=== PATIENT | male | born 1980 | race Caucasian/White ===

== ENCOUNTER 2017-07-21 22:35 | Emergency (ER) | payer MEDICAID ==
[~2017-07-21] VITALS: Ht 180.3 cm; Wt 60.8 kg
[2017-07-21 22:37] VITALS: BP 129/86
[2017-07-21 23:21] LABS: RAPID INFLUENZA A Negative (Negative); RAPID INFLUENZA B Negative (Negative)
== END 2017-07-21 23:42 | disposition home or self-care (01) ==
LOC: ED 23:15
DX: J20.9 Acute bronchitis, unspecified (principal); B96.89 Other specified bacterial agents as the cause of diseases classified elsewhere
CPT/HCPCS: 71020; 87400; 99285

== ENCOUNTER 2017-10-30 15:36 | Emergency (ER) | payer MEDICAID ==
[~2017-10-30] VITALS: Ht 177.8 cm; Wt 57.3 kg
[2017-10-30] MEDS ORDERED: MIDAZOLAM 1 MG/ML, 2ML ONE ×2 (15:42)
[2017-10-30] MEDS ORDERED: MIDAZOLAM 1 MG/ML, 2ML IVPush ONE (16:00)
[2017-10-30] MEDS ORDERED: PLEASE ENTER HEIGHT AND WEIGHT MC SCH (16:00)
[2017-10-30 16:01] LABS: ALBUMIN 4.1 g/dL (3.4-5.0); ANION GAP 5 mmol/L (5-15); CHLORIDE 112 mmol/L (98-107); SALICYLATE LEVEL 2.7 mg/dL (2.8-20.0)
[2017-10-30 16:04] LABS: ACETAMINOPHEN < 2 mcg/mL (10-30); ALANINE AMINOTRANSFERASE 24 U/L (12-78); ALKALINE PHOSPHATASE 59 U/L (45-117); BILIRUBIN,TOTAL 0.4 mg/dL (0.2-1.0); CREATININE 1.12 mg/dL (0.7-1.3); TOTAL PROTEIN 7.5 g/dL (6.4-8.2)
[2017-10-30 16:10] LABS: BASOPHILS # (AUTO) 0.04 x10^3/uL (0-0.1); BASOPHILS % (AUTO) 0 % (0-1); EOSINOPHILS # (AUTO) 0.14 x10^3/uL (0-0.4); EOSINOPHILS % (AUTO) 1 % (1-7); LYMPHOCYTES # (AUTO) 2.21 x10^3/uL (1-3.4); LYMPHOCYTES % (AUTO) 18 % (22-44); MD NO; MEAN CORPUSCULAR HEMOGLOBIN 32.7 pg (27.5-34.5); MEAN PLATELET VOLUME 8.1 fL (7.4-10.4); MONOCYTES % (AUTO) 4 % (2-9); NEUTROPHILS # (AUTO) 9.41 x10^3/uL (1.8-6.8); NEUTROPHILS % (AUTO) 77 % (42-75); PLATELET COUNT 258 x10^3/uL (130-400); RED BLOOD COUNT 4.51 x10^6/uL (4.38-5.82); RED CELL DISTRIBUTION WIDTH 12.1 % (9.4-14.8)
[2017-10-30] MEDS ORDERED: KETOROLAC 30 MG/1 ML ONE (20:08)
[2017-10-30 21:28] VITALS: BP 113/75
== END 2017-10-30 21:31 | disposition home or self-care (01) ==
LOC: ED 17:14
DX: F10.120 Alcohol abuse with intoxication, uncomplicated (principal)
CPT/HCPCS: 36415; 70450; 80053; 80307; 80329; 85025; 93005; 96374; 99285; J2250; G0480

== ENCOUNTER 2018-10-21 21:55 | Emergency (ER) | payer MEDICAID, OTHER ==
[~2018-10-21] VITALS: Ht 180.3 cm; Wt 60.8 kg
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
--- NOTE | 2018-10-21 22:41 | NUR ---
PT IN XRAY NOW.
--- NOTE | 2018-10-21 22:57 | NUR ---
EDMD AT BEDSIDE TO ASSESS AT THIS TIME.
[2018-10-21 23:02] LABS: BASOPHILS # (AUTO) 0.03 x10^3/uL (0-0.1); BASOPHILS % (AUTO) 0 % (0-1); EOSINOPHILS # (AUTO) 0.07 x10^3/uL (0-0.4); EOSINOPHILS % (AUTO) 1 % (1-7); LYMPHOCYTES # (AUTO) 1.87 x10^3/uL (1-3.4); LYMPHOCYTES % (AUTO) 26 % (22-44); MD NO; MEAN CORPUSCULAR HEMOGLOBIN 32.7 pg (27.5-34.5); MEAN CORPUSCULAR HGB CONC 33.9 g/dL (33.2-36.2); MEAN CORPUSCULAR VOLUME 96.3 fL (81-97); MEAN PLATELET VOLUME 7.7 fL (7.4-10.4); MONOCYTES # (AUTO) 0.51 x10^3/uL (0.2-0.8); MONOCYTES % (AUTO) 7 % (2-9); NEUTROPHILS # (AUTO) 4.63 x10^3/uL (1.8-6.8); NEUTROPHILS % (AUTO) 65 % (42-75); PLATELET COUNT 221 x10^3/uL (130-400); RED BLOOD COUNT 4.42 x10^6/uL (4.38-5.82); RED CELL DISTRIBUTION WIDTH 12.3 % (9.4-14.8)
--- NOTE | 2018-10-21 23:02 | NUR ---
PT AMB TO BR AND BACK TO ROOM WITH STEADY GAIT.
[2018-10-21 23:14] LABS: ALANINE AMINOTRANSFERASE 21 U/L (12-78); ALBUMIN 4.2 g/dL (3.4-5.0); ANION GAP 2 mmol/L (5-15); CALCIUM 8.4 mg/dL (8.5-10.1); CHLORIDE 113 mmol/L (98-107); CREATININE 0.89 mg/dL (0.7-1.3)
[2018-10-21 23:18] LABS: ALKALINE PHOSPHATASE 56 U/L (45-117); BILIRUBIN,TOTAL 0.7 mg/dL (0.2-1.0); TOTAL PROTEIN 7.1 g/dL (6.4-8.2); TROPONIN I < 0.015 ng/mL (0.000-0.045)
--- NOTE | 2018-10-21 23:30 | NUR ---
PT UNABLE TO PROVIDE URINE SAMPLE AT THIS TIME. PROVIDED SOME WATER.
[2018-10-21 23:48] VITALS: BP 112/68
--- NOTE | 2018-10-21 23:48 | NUR ---
PT GIVEN DC INSTRUCTIONS. PT AMB TO DC WITH STEADY GAIT. PT'S AOX4. RESPS EVEN AND UNLABORED. NO ACUTE DISTRESS AT DC.
== END 2018-10-21 23:49 | disposition home or self-care (01) ==
LOC: ED 23:42
DX: R07.9 Chest pain, unspecified (principal); F17.200 Nicotine dependence, unspecified, uncomplicated
CPT/HCPCS: 36415; 71046; 80053; 83880; 84484; 85025; 93005; 99284

== ENCOUNTER 2018-11-11 23:17 | Emergency (ER) | payer OTHER ==
[~2018-11-11] VITALS: Ht 177.8 cm; Wt 60.0 kg
--- NOTE | 2018-11-11 23:45 | NUR ---
LATE ENTRY FOR 23:45. FIRST CONTACT WITH PT. PT C/O CENTER PAIN CHEST 04/03 PT REPORTS HE HAS HAD CHEST PAIN X1 MONTH. PT'S AOX4. RESPS EVEN AND UNLABORED. PT DENIES ANY OTHER S/S AT THIS TIME. ALL MONITORS IN PLACE. CALL LIGHT WITHIN REACH.
[2018-11-12] MEDS ORDERED: IBUPROFEN 800 MG TABLET PO ONE
[2018-11-12] MEDS ORDERED: IBUPROFEN 800 MG TABLET ONE (00:05)
--- NOTE | 2018-11-12 00:24 | NUR ---
PT MEDICATED PER EMAR. PT TOLERATED WELL.
[2018-11-12 00:32] VITALS: BP 109/67
--- NOTE | 2018-11-12 00:33 | NUR ---
PT GIVEN DC INSTRUCTIONS AND SCRIPT. PT EDUCATED REGARDING DC MEDICATION. PT AMB TO DC IWTH STEADY GAIT. PT'S AOX4. RESPS EVEN AND UNLABORED. NO ACUTE DISTRESS AT DC.
== END 2018-11-12 00:34 | disposition home or self-care (01) ==
LOC: ED 11-12 00:25
DX: G89.29 Other chronic pain (principal); R07.9 Chest pain, unspecified; G43.909 Migraine, unspecified, not intractable, without status migrainosus
CPT/HCPCS: 93005; 99283

== ENCOUNTER 2018-12-01 11:23 | Emergency (ER) | payer OTHER ==
[~2018-12-01] VITALS: Ht 180.3 cm; Wt 58.0 kg
[2018-12-01 11:34] VITALS: BP 117/72
[2018-12-01] MEDS ORDERED: ACETAMINOPHEN 325 MG TABLET PO ONE (12:00)
[2018-12-01] MEDS ORDERED: DEXAMETHASONE 4 MG TABLET PO ONE (12:00)
[2018-12-01] MEDS ORDERED: ACETAMINOPHEN 325 MG TABLET ONE (12:13)
[2018-12-01] MEDS ORDERED: DEXAMETHASONE 4 MG TABLET ONE (12:14)
== END 2018-12-01 12:42 | disposition home or self-care (01) ==
LOC: ED 12:16
DX: J02.0 Streptococcal pharyngitis (principal); F17.200 Nicotine dependence, unspecified, uncomplicated; G43.909 Migraine, unspecified, not intractable, without status migrainosus
CPT/HCPCS: 71046; 87880; 99284

== ENCOUNTER 2019-01-23 18:58 | Emergency (ER) | payer OTHER ==
[~2019-01-23] VITALS: Ht 180.3 cm; Wt 57.1 kg
[2019-01-23] MEDS ORDERED: ONDANSETRON ODT 8 MG PO STA (19:15)
--- NOTE | 2019-01-23 19:16 | NUR ---
PT STATES "MY WHOLE BODY HURTS. I HAVE A HEADACHE, SORE NECK, SORE JOINTS. I THINK I'M REALLY SICK". monitors applied, siderails up x2, call light within reach
[2019-01-23 19:19] VITALS: BP 112/71
[2019-01-23] MEDS ORDERED: ACETAMINOPHEN 325 MG TABLET ONE (19:20)
[2019-01-23] MEDS ORDERED: ONDANSETRON ODT 4 MG ONE (19:21)
--- NOTE | 2019-01-23 19:24 | NUR ---
pt medicated per mar
[2019-01-23 19:30] LABS: MEAN CORPUSCULAR HEMOGLOBIN 33.7 pg (27.5-34.5); MEAN CORPUSCULAR HGB CONC 33.6 g/dL (33.2-36.2); MEAN CORPUSCULAR VOLUME 100.3 fL (81-97); MEAN PLATELET VOLUME 7.9 fL (7.4-10.4); PLATELET COUNT 231 x10^3/uL (130-400); RED BLOOD COUNT 5.64 x10^6/uL (4.38-5.82); RED CELL DISTRIBUTION WIDTH 12.5 % (9.4-14.8)
[2019-01-23] MEDS ORDERED: ACETAMINOPHEN 500 MG TABLET PO ONE (19:30)
[2019-01-23 19:35] LABS: MD YES
[2019-01-23 19:42] LABS: ALANINE AMINOTRANSFERASE 25 U/L (12-78); ALBUMIN 5.3 g/dL (3.4-5.0); ANION GAP 16 mmol/L (5-15); CALCIUM 10.9 mg/dL (8.5-10.1); CHLORIDE 99 mmol/L (98-107); CREATININE 2.25 mg/dL (0.7-1.3)
[2019-01-23 19:44] LABS: ALKALINE PHOSPHATASE 89 U/L (45-117); BILIRUBIN,TOTAL 1.4 mg/dL (0.2-1.0); TOTAL PROTEIN 9.8 g/dL (6.4-8.2)
--- NOTE | 2019-01-23 19:50 | NUR ---
PROVIDED PT WITH URINE CUP FOR SAMPLE.
--- NOTE | 2019-01-23 19:54 | NUR ---
PT DRESSED AND WALKING OUT OF HOSPITAL, PA NOTIFIED AND DISCUSSED WITH PT POC AND NEED FOR ABX, PT STATED " I DON'T CARE AND WALKED OUT OF HOSPITAL."
[2019-01-23 20:13] LABS: BAND#(MANUAL) 0.47 x10^3/uL; BANDS%(MANUAL) 2 % (0-7); LYMPH#(MANUAL) 0.94 x10^3/uL (1-3.4); LYMPHS% (MANUAL) 4 % (22-44); MONOS#(MANUAL) 2.12 x10^3/uL (0.3-2.7); MONOS% (MANUAL) 9 % (2-9); SEG#(MANUAL) 20.06 x10^3/uL (1.8-6.8); SEGS% (MANUAL) 85 % (42-75)
[2019-01-23 20:15] LABS: <PLATELET ESTIMATE> ADEQUATE; <PLT MORPHOLOGY> NORMAL PLT MORPH
== END 2019-01-23 19:57 | disposition left against medical advice (07) ==
LOC: ED 19:51
DX: J02.0 Streptococcal pharyngitis (principal); N17.9 Acute kidney failure, unspecified; D72.829 Elevated white blood cell count, unspecified; I10 Essential (primary) hypertension; F17.210 Nicotine dependence, cigarettes, uncomplicated; Z90.49 Acquired absence of other specified parts of digestive tract
CPT/HCPCS: 36415; 80053; 83690; 85025; 86308; 87880; 99283; Q0162

== ENCOUNTER 2019-01-23 21:32 | Inpatient (IN) | payer OTHER ==
[~2019-01-23] VITALS: Ht 180.3 cm; Wt 56.3 kg
[2019-01-23] MEDS ORDERED: SODIUM CHLORIDE FLUSH 10ML SYR IVF ONE (22:30)
[2019-01-23] MEDS ORDERED: SODIUM CHLORIDE 0.9% 1,000ML IVBOLUS ONE ×2 (22:30→23:00)
--- NOTE | 2019-01-23 22:52 | NUR ---
IV STARTED, LABS DRAWN AND PT PLACED ON BP AND SPO2 MONITORS.
[2019-01-23] MEDS ORDERED: MORPHINE SULFATE 4 MG/ML, 1ML IVPush PRN (23:00)
[2019-01-23] MEDS ORDERED: AMPICILLIN/SULBACTAM 3 GM in SODIUM CHLORIDE 0.9% 100 ML IV ONE (23:00)
[2019-01-23] MEDS ORDERED: ONDANSETRON 2MG/ML, 2ML IVPush ONE (23:00)
[2019-01-23] MEDS ORDERED: ONDANSETRON 2MG/ML, 2ML ONE (23:25)
[2019-01-23] MEDS ORDERED: MORPHINE SULFATE 4 MG/ML, 1ML ONE (23:25)
--- NOTE | 2019-01-23 23:40 | NUR ---
LAB AT BEDSIDE FOR BLOOD CULTURE X 2 DRAW. PT AWARE OF IMPORTANCE OF BLOOD CULTURES.
[2019-01-24] MEDS ORDERED: hydrALAzine 20 MG/ML, 1ML IVPush PRN
[2019-01-24] MEDS: NICOTINE 14MG/24 HR PATCH.TD24 TD SCH
[2019-01-24] MEDS ORDERED: ONDANSETRON 2MG/ML, 2ML IVPush PRN
[2019-01-24] MEDS ORDERED: ACETAMINOPHEN 325 MG TABLET PO PRN
[2019-01-24 01:00] VITALS: BP 116/79
[2019-01-24 01:11] VITALS: BP 164/79
[2019-01-24] MEDS: SODIUM CHLORIDE 0.9% 1,000 ML IV SCH ×3 (02:41→19:32)
[2019-01-24] MEDS: HYDROcodone/APAP 5/325 TABLET PO PRN ×2 (04:28→12:05)
[2019-01-24 04:47] LABS: MEAN CORPUSCULAR HEMOGLOBIN 33.9 pg (27.5-34.5); MEAN CORPUSCULAR HGB CONC 33.7 g/dL (33.2-36.2); MEAN CORPUSCULAR VOLUME 100.4 fL (81-97); MEAN PLATELET VOLUME 8.4 fL (7.4-10.4); PLATELET COUNT 231 x10^3/uL (130-400); RED CELL DISTRIBUTION WIDTH 12.4 % (9.4-14.8)
[2019-01-24 04:50] LABS: ANION GAP 11 mmol/L (5-15); CALCIUM 9.4 mg/dL (8.5-10.1); CHLORIDE 103 mmol/L (98-107); CREATININE 1.99 mg/dL (0.7-1.3)
[2019-01-24 05:04] LABS: MICROSCOPIC INDICATED
[2019-01-24 05:09] LABS: AMPHETAMINE SCREEN, URINE Negative (Negative); BARBITURATE SCREEN, URINE Negative (Negative); BENZODIAZEPINE SCREEN, URINE Negative (Negative); CANNABINOID SCREEN, URINE Positive (Negative); COCAINE SCREEN, URINE Negative (Negative); METHADONE SCREEN, URINE Negative (Negative); OPIATE SCREEN, URINE Positive (Negative)
[2019-01-24 05:26] LABS: CULTURE INDICATED? YES
[2019-01-24 05:55] LABS: BASOPHILS # (AUTO) 0.01 x10^3/uL (0-0.1); BASOPHILS % (AUTO) 0 % (0-1); EOSINOPHILS # (AUTO) 0.02 x10^3/uL (0-0.4); EOSINOPHILS % (AUTO) 0 % (1-7); LYMPHOCYTES # (AUTO) 1.34 x10^3/uL (1-3.4); LYMPHOCYTES % (AUTO) 6 % (22-44); MD SCAN; MONOCYTES # (AUTO) 1.55 x10^3/uL (0.2-0.8); MONOCYTES % (AUTO) 7 % (2-9); NEUTROPHILS # (AUTO) 18.63 x10^3/uL (1.8-6.8); NEUTROPHILS % (AUTO) 87 % (42-75)
[2019-01-24 07:05] VITALS: BP 100/65
[2019-01-24] MEDS: AMPICILLIN/SULBACTAM 1,500 MG in SODIUM CHLORIDE 0.9% 50 ML IV SCH ×2 (07:44→15:50)
[2019-01-24 11:56] LABS: MEAN CORPUSCULAR HEMOGLOBIN 34.2 pg (27.5-34.5); MEAN CORPUSCULAR VOLUME 100.6 fL (81-97); PLATELET COUNT 213 x10^3/uL (130-400); RED BLOOD COUNT 4.52 x10^6/uL (4.38-5.82); RED CELL DISTRIBUTION WIDTH 12.9 % (9.4-14.8)
[2019-01-24 12:09] LABS: ALANINE AMINOTRANSFERASE 19 U/L (12-78); ALBUMIN 3.6 g/dL (3.4-5.0); ANION GAP 5 mmol/L (5-15); CALCIUM 8.9 mg/dL (8.5-10.1); CHLORIDE 105 mmol/L (98-107); CREATININE 1.47 mg/dL (0.7-1.3)
[2019-01-24 12:12] LABS: ALKALINE PHOSPHATASE 63 U/L (45-117); BILIRUBIN,TOTAL 0.8 mg/dL (0.2-1.0); TOTAL PROTEIN 7.1 g/dL (6.4-8.2)
[2019-01-24 12:29] LABS: BASOPHILS # (AUTO) 0.02 x10^3/uL (0-0.1); BASOPHILS % (AUTO) 0 % (0-1); EOSINOPHILS # (AUTO) 0.06 x10^3/uL (0-0.4); EOSINOPHILS % (AUTO) 0 % (1-7); LYMPHOCYTES # (AUTO) 1.27 x10^3/uL (1-3.4); LYMPHOCYTES % (AUTO) 7 % (22-44); MD NO; MONOCYTES # (AUTO) 1.34 x10^3/uL (0.2-0.8); MONOCYTES % (AUTO) 8 % (2-9); NEUTROPHILS # (AUTO) 15.19 x10^3/uL (1.8-6.8); NEUTROPHILS % (AUTO) 85 % (42-75)
[2019-01-24 13:07] VITALS: BP 119/79
[2019-01-24 19:52] VITALS: BP 123/76
[2019-01-25] MEDS: NICOTINE 14MG/24 HR PATCH.TD24 TD SCH
[2019-01-25] MEDS: AMPICILLIN/SULBACTAM 1,500 MG in SODIUM CHLORIDE 0.9% 50 ML IV SCH (00:03)
[2019-01-25] MEDS: SODIUM CHLORIDE 0.9% 1,000 ML IV SCH (02:45)
[2019-01-25 02:50] VITALS: BP 108/59
[2019-01-25 06:01] LABS: BASOPHILS # (AUTO) 0.02 x10^3/uL (0-0.1); BASOPHILS % (AUTO) 0 % (0-1); EOSINOPHILS # (AUTO) 0.14 x10^3/uL (0-0.4); EOSINOPHILS % (AUTO) 1 % (1-7); LYMPHOCYTES # (AUTO) 1.44 x10^3/uL (1-3.4); LYMPHOCYTES % (AUTO) 14 % (22-44); MD NO; MEAN CORPUSCULAR HEMOGLOBIN 33.2 pg (27.5-34.5); MEAN CORPUSCULAR HGB CONC 33.4 g/dL (33.2-36.2); MEAN CORPUSCULAR VOLUME 99.5 fL (81-97); MEAN PLATELET VOLUME 8.1 fL (7.4-10.4); MONOCYTES % (AUTO) 9 % (2-9); NEUTROPHILS # (AUTO) 8.09 x10^3/uL (1.8-6.8); NEUTROPHILS % (AUTO) 76 % (42-75); PLATELET COUNT 199 x10^3/uL (130-400); RED BLOOD COUNT 4.36 x10^6/uL (4.38-5.82); RED CELL DISTRIBUTION WIDTH 12.9 % (9.4-14.8)
[2019-01-25 06:02] LABS: ANION GAP 7 mmol/L (5-15); CALCIUM 8.4 mg/dL (8.5-10.1); CHLORIDE 108 mmol/L (98-107); CREATININE 0.99 mg/dL (0.7-1.3)
[2019-01-25 06:30] VITALS: BP 103/62
[2019-01-25] MEDS ORDERED: AMOX1TAB64 PO (07:57)
== END 2019-01-25 08:42 | disposition home or self-care (01) | DRG 152 ==
LOC: ED 22:27 → 4NOR 23:03
PROVIDERS: ADMIT Internal Medicine; ATTEND Internal Medicine
DX: J02.0 Streptococcal pharyngitis (principal); N17.0 Acute kidney failure with tubular necrosis; B95.0 Streptococcus, group A, as the cause of diseases classified elsewhere; I10 Essential (primary) hypertension; G43.909 Migraine, unspecified, not intractable, without status migrainosus; F17.210 Nicotine dependence, cigarettes, uncomplicated; Z82.49 Family history of ischemic heart disease and other diseases of the circulatory system; Z90.49 Acquired absence of other specified parts of digestive tract; Z88.8 Allergy status to other drugs, medicaments and biological substances
CPT/HCPCS: 36415; 80048; 80053; 80307; 81001; 83605; 84145; 85025; 87040; 87086; 87806; 96374; 96375; G0378; J0295; J2405; G0475; J2270; J7030

== ENCOUNTER 2019-03-13 22:45 | Emergency (ER) | payer OTHER ==
[~2019-03-13] VITALS: Ht 180.3 cm; Wt 61.3 kg
[2019-03-14 00:53] VITALS: BP 103/70
== END 2019-03-14 00:59 | disposition home or self-care (01) ==
LOC: ED 23:07
DX: R10.11 Right upper quadrant pain (principal); R11.2 Nausea with vomiting, unspecified; R19.7 Diarrhea, unspecified; F17.200 Nicotine dependence, unspecified, uncomplicated; I10 Essential (primary) hypertension
CPT/HCPCS: 36415; 80047; 85025; 93005; 96360; 99284; J7030

== ENCOUNTER 2019-05-16 21:53 | Emergency (ER) | payer OTHER ==
[~2019-05-16] VITALS: Ht 180.3 cm; Wt 62.4 kg
[~2019-05-16 21:53] MED LIST: AMOX1TAB64 PO
[2019-05-16 22:02] VITALS: BP 120/77
--- NOTE | 2019-05-16 23:17 | NUR ---
work note given.
== END 2019-05-16 23:19 | disposition home or self-care (01) ==
LOC: ED 23:13
DX: G43.909 Migraine, unspecified, not intractable, without status migrainosus (principal); H57.89 Other specified disorders of eye and adnexa; I10 Essential (primary) hypertension
CPT/HCPCS: 99281

== ENCOUNTER 2019-05-20 19:05 | Emergency (ER) | payer OTHER ==
[~2019-05-20] VITALS: Ht 180.3 cm; Wt 60.6 kg
[2019-05-20 19:38] VITALS: BP 122/76
--- NOTE | 2019-05-20 21:12 | NUR ---
called pt to room, not in lobby
--- NOTE | 2019-05-20 21:30 | NUR ---
Nilx2
--- NOTE | 2019-05-20 21:48 | NUR ---
Attempted to call pt back to room. Nilx3.
== END 2019-05-20 21:50 | disposition left against medical advice (07) ==
LOC: ED 21:40
DX: R51 Headache (principal); Z53.21 Procedure and treatment not carried out due to patient leaving prior to being seen by health care provider

== ENCOUNTER 2019-06-28 22:07 | Emergency (ER) | payer OTHER ==
[~2019-06-28] VITALS: Ht 182.9 cm; Wt 57.3 kg
[2019-06-28 22:23] VITALS: BP 140/93
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
--- NOTE | 2019-06-28 22:47 | NUR ---
BREATHALIZER 0.202
--- NOTE | 2019-06-28 22:53 | NUR ---
PT REFUSED LAB DRAW. PROVIDER AWARE. WILL RETRY AFTER PT METABOLIZES ETOH.
--- NOTE | 2019-06-29 00:09 | NUR ---
PT BACK FROM CT AT THIS TIME. REPORT OF PT FROM KOKI GARCIA AND ASSUMING CARE OF PT AT THIS TIME.
--- NOTE | 2019-06-29 00:24 | NUR ---
PT ELDELMYD. DR DURAN NOTIFIED ALONG WITH SENIOR MEDICAL BILLING SPECIALIST KEVIN.
== END 2019-06-29 00:26 | disposition left against medical advice (07) ==
LOC: ED 22:46
DX: F10.229 Alcohol dependence with intoxication, unspecified (principal); I10 Essential (primary) hypertension; G43.909 Migraine, unspecified, not intractable, without status migrainosus; Y90.0 Blood alcohol level of less than 20 mg/100 ml
CPT/HCPCS: 70450; 99284

== ENCOUNTER 2020-03-29 11:27 | Emergency (ER) | payer SELFPAY ==
[~2020-03-29] VITALS: Ht 177.8 cm; Wt 61.0 kg
[2020-03-29] MEDS ORDERED: AZITHROMYCIN 500 MG TABLET PO ONE (12:00)
[2020-03-29] MEDS ORDERED: CEFTRIAXONE 250 MG IM ONE (12:00)
[2020-03-29 13:21] VITALS: BP 121/83
== END 2020-03-29 13:23 | disposition home or self-care (01) ==
LOC: ED 12:10
DX: A64 Unspecified sexually transmitted disease (principal); N45.3 Epididymo-orchitis
CPT/HCPCS: 76870; 99284; J0696

== ENCOUNTER 2020-07-13 22:38 | Emergency (ER) | payer SELFPAY ==
[~2020-07-13] VITALS: Ht 180.3 cm; Wt 61.5 kg
[2020-07-13 22:43] VITALS: BP 129/79
--- NOTE | 2020-07-13 23:45 | NUR ---
patient left , states he cannot wait anymore.
== END 2020-07-14 00:43 | disposition left against medical advice (07) ==
LOC: ED 22:55
DX: S09.90XA Unspecified injury of head, initial encounter (principal); M79.641 Pain in right hand; M79.642 Pain in left hand; M54.2 Cervicalgia; Y08.89XA Assault by other specified means, initial encounter; Y93.89 Activity, other specified; Y99.8 Other external cause status; Y92.89 Other specified places as the place of occurrence of the external cause
CPT/HCPCS: 70450; 70486; 72125; 99285